=== PATIENT | female | born 1965 | race Two or more races ===

== ENCOUNTER 2017-01-03 15:54 | Emergency (ER) | payer MEDICAID, OTHER ==
[~2017-01-03] VITALS: Ht 172.7 cm; Wt 90.7 kg
[2017-01-03 16:06] VITALS: BP 123/66
== END 2017-01-03 20:12 | disposition left against medical advice (07) ==
LOC: ER 15:54
DX: R10.9 Unspecified abdominal pain (principal); Z53.21 Procedure and treatment not carried out due to patient leaving prior to being seen by health care provider
CPT/HCPCS: 93005